=== PATIENT | female | born 1940 | race Caucasian/White ===

== ENCOUNTER 2016-11-23 09:59 | Day surgery (SDC) | payer BC, MEDICARE ==
--- NOTE | ~2016-11-23 | EGD ---
EGD REPORT [facility] [address] [address] NAME: CHRISTA JOHNSON : [birth year] STATUS : REG [facility]#: [id number] AGE: 76 ADM/REG DATE : 11/23/16 MR#: [id number] REPORT SERV DATE: 11/23/16 DICTATED BY: BRADY GOLDSTEIN DATE: 11/23/16 REPORT STATUS : Draft TRANSCRIBED BY: [facility] DATE: 11/23/16 Endoscopy Center Patient Name: Christa Johnson Date of : 1940 Attending MD: BRADY GOLDSTEIN, Procedure Date No Time: 11/23/2016 Procedure: Upper EUS Indications: Common bile duct dilation (acquired) seen on CT scan Referring MD: ANGEL LUIS MARR MD, JOSE ALBERTO [place] Medicines: Monitored Anesthesia Care Complications: No immediate complications. Estimated blood loss: None. Procedure: Pre-Anesthesia Assessment: - ASA Grade Assessment: III - A patient with severe systemic disease. After obtaining informed consent, the endoscope was passed under direct vision. Throughout the procedure, the patient's blood pressure, pulse, and oxygen saturations were monitored continuously. The Endoscope was introduced through the mouth, and advanced to the second part of duodenum. The GIF [id number] was introduced through the mouth, and advanced to the second part of duodenum. The upper EUS was accomplished without difficulty. The patient tolerated the procedure well. Findings: Endoscopic Finding : The examined esophagus was endoscopically normal. The cardia and gastric fundus were normal on retroflexion. Patchy mild inflammation characterized by erythema was found in the gastric body and in the gastric antrum. Biopsies were taken with a cold forceps for histology. Verification of patient identification for the specimen was done. Estimated blood loss was minimal. The exam of the stomach was otherwise normal. The duodenal bulb was normal. Decreased folds were found in the 2nd part of the duodenum and scalloped mucosa was found in the 2nd part of the duodenum. Biopsies were taken with a cold forceps for histology. Verification of patient identification for the specimen was done. Estimated blood loss was minimal. Endosonographic Finding : There was no sign of significant endosonographic abnormality in the entire pancreas. The pancreas was well visualized, no pathologic lymphadenopathy, no masses, no calcifications, the pancreatic duct was well visualized from ampulla to tail, the pancreatic duct was regular in contour. EGD REPORT [facility] [id number] [place]. [address] NAME: CHRISTA JOHNSON : [birth year] STATUS : REG [facility] PAT#: [id number] AGE: 76 ADM/REG DATE : 11/23/16 MR#: [id number] REPORT SERV DATE: 11/23/16 DICTATED BY: BRADY GOLDSTEIN DATE: 11/23/16 REPORT STATUS : Draft TRANSCRIBED BY: [employer] DATE: 11/23/16 There was dilation in the common bile duct which measured up to 9 mm. Endosonographic imaging of the visualized portion of the biliary system showed no stones and no mass. There was no sign of significant endosonographic abnormality in the examined duodenum. Endosonographic images of the stomach were unremarkable. There was no sign of significant endosonographic abnormality in the esophagus. Impression: - Normal esophagus. - Gastritis. Biopsied. - Normal duodenal bulb. - Duodenal mucosal changes seen, suspicious for celiac disease. Biopsied. - There was no sign of significant pathology in the entire pancreas. - There was dilation in the common bile duct which measured up to 9 mm. - There was no sign of significant pathology in the examined duodenum. - Endosonographic images of the stomach were unremarkable. - There was no sign of significant pathology in the esophagus. Recommendation: - Return to previous diet. - Continue present medications. - Await path results. - Return to referring physician. Procedure Code(s): --- Professional --- 98537, Esophagogastroduodenoscopy, flexible, transoral; with endoscopic ultrasound examination, including the esophagus, stomach, and either the duodenum or a surgically altered stomach where the jejunum is examined distal to the anastomosis Diagnosis Code(s): --- Professional --- K29.70, Gastritis, unspecified, without bleeding K31.9, Disease of stomach and duodenum, unspecified K83.8, Other specified diseases of biliary tract CPT copyright 2013 [employer]. All rights reserved. The codes documented in this report are preliminary and upon due diligence coordinator review may be revised to meet current compliance requirements. EGD REPORT [facility] [address] [address] NAME: CHRISTA JOHNSON : [birth year] STATUS : REG [facility] [place] PAT#: [id number] AGE: 76 ADM/REG DATE : 11/23/16 MR#: [id number] REPORT SERV DATE: 11/23/16 DICTATED BY: BRADY GOLDSTEIN DATE: 11/23/16 REPORT STATUS : Draft TRANSCRIBED BY: [employer] DATE: 11/23/16 Attending Participation: I personally performed the entire procedure. BRADY GOLDSTEIN, 11/23/2016 11:22 AM Number of Addenda: 0 Note Initiated On: 11/23/2016 10:36 AM Scope Withdrawal Time 0 hours 0 minutes 0 seconds [address] [id number]
--- NOTE | ~2016-11-23 | EGD ---
EGD REPORT [facility] [address] [address] NAME: CHRISTA JOHNSON : 36 STATUS : REG [facility]#: [id number] AGE: 76 ADM/REG DATE : 11/23/16 MR#: [id number] REPORT SERV DATE: 11/23/16 DICTATED BY: BRADY GOLDSTEIN DATE: 11/23/16 REPORT STATUS : Draft TRANSCRIBED BY: [employer] DATE: 11/23/16 Endoscopy Center Patient Name: Christa Johnson Date of : 1940 Attending MD: BRADY GOLDSTEIN, Procedure Date No Time: 11/23/2016 Procedure: Colonoscopy Indications: Hematochezia Referring MD: ANGEL LUIS [place] MD Medicines: Monitored Anesthesia Care Complications: No immediate complications. Estimated blood loss: None. Procedure: Pre-Anesthesia Assessment: - ASA Grade Assessment: III - A patient with severe systemic disease. After I obtained informed consent, the scope was passed under direct vision. Throughout the procedure, the patient's blood pressure, pulse, and oxygen saturations were monitored continuously. The PCF [id number] was introduced through the anus and advanced to the cecum, identified by appendiceal orifice and ileocecal valve. The colonoscopy was performed without difficulty. The patient tolerated the procedure well. The quality of the bowel preparation was good. Findings: The perianal and digital rectal examinations were normal. A few small-mouthed diverticula were found in the sigmoid colon. Internal hemorrhoids were found during retroflexion and were Grade II (internal hemorrhoids that prolapse but reduce spontaneously). The exam was otherwise without abnormality on direct and retroflexion views. Impression: - Diverticulosis in the sigmoid colon. - Internal hemorrhoids. - The examination was otherwise normal on direct and retroflexion views. Recommendation: - Patient has a contact number available for emergencies. The signs and symptoms of potential delayed complications were discussed with the patient. Return to normal activities tomorrow. Written discharge instructions were provided to the patient. - Return to previous diet. - Continue present medications. - Repeat colonoscopy is not recommended for screening EGD REPORT [address] [place]. [address] NAME: CHRISTA JOHNSON : [birth year] STATUS : REG [facility]#: [id number] AGE: 76 ADM/REG DATE : 11/23/16 MR#: [id number] REPORT SERV DATE: 11/23/16 DICTATED BY: BRADY GOLDSTEIN DATE: 11/23/16 REPORT STATUS : Draft TRANSCRIBED BY: [employer] SERVICES DATE: 11/23/16 purposes. - Return to referring physician. Procedure Code(s): --- Professional --- 45013, Colonoscopy, flexible, proximal to splenic flexure; diagnostic, with or without collection of specimen(s) by brushing or washing, with or without colon decompression (separate procedure) Diagnosis Code(s): --- Professional --- K64.1, Second degree hemorrhoids K57.30, Diverticulosis of large intestine without perforation or abscess without bleeding K92.1, Melena CPT copyright 2013 [employer]. All rights reserved. The codes documented in this report are preliminary and upon nozzle cement sprayer helper review may be revised to meet current compliance requirements. BRADY GOLDSTEIN, 11/23/2016 11:23 AM Number of Addenda: 0 Note Initiated On: 11/23/2016 10:25 AM Scope Withdrawal Time 0 hours 13 minutes 54 seconds [address] [place] [address]
[~2016-11-23 09:59] MED LIST: ADALAT CC60 MG PO; ASAB PO; CARD120 PO; JANTOVEN1 MG PO; Jantoven PO; KAPIDEX60 MG PO; LOP25 PO; MULTIPLE VIT PO; NORCO1 TA2 PO; NXL3 PO; SORINE120 MG PO; SYNTHROID137 MCG PO; SYNTHROID200 MCG PO; X5 PO
[2016-11-23 10:25] LABS: INTERNATIONAL NORMAL RATI 2.2 UNITS (-); PROTIME (NOT ORD) 24.4 SEC (12.0-14.5)
[2016-11-23 10:29] LABS: CALCIUM, SERUM 9.6 MG/DL (8.5-10.4); CHLORIDE, SERUM 108 MMOL/L (96-112); CO2 (CARBON DIOXIDE) 27 MMOL/L (24-34); CREATININE 0.68 MG/DL (0.55-1.02); DIRECT BILIRUBIN 0.2 MG/DL (0.0-0.4); GFR AFRICAN AMERICAN 97 ML/MIN (>=60); GFR NON AFRICAN AMERICAN 84 ML/MIN (>=60); GLUCOSE, SERUM 81 MG/DL (60-99); INDIRECT BILIRUBIN(NOT ORDER) 0.7 MG/DL (0.1-0.9); SGOT(AST) 33 U/L (5-40); SGPT(ALT) 34 U/L (5-65); TOTAL BILIRUBIN 0.9 MG/DL (0-1.2)
[2016-11-23 10:30] LABS: ALBUMIN 3.3 G/DL (3.5-5.0); ALKALINE PHOSPHATASE 96 U/L (45-117); BUN (BLOOD UREA NITROGEN) 9 MG/DL (6-23); POTASSIUM, SERUM 4.6 MMOL/L (3.5-5.3); SODIUM, SERUM 144 MMOL/L (135-148); TOTAL PROTEIN 6.2 G/DL (6.0-8.5)
== END 2016-11-23 23:59 | disposition home or self-care (01) ==
LOC: DMU 09:59
PROVIDERS: Anesthesiology; Internal Medicine Gastroenterology
PROC: 0DJ08ZZ Inspection of Upper Intestinal Tract, Via Natural or Artificial Opening Endoscopic (ICD-10-PCS; principal; 2016-11-23 12:00)
PROC: 0DJD8ZZ Inspection of Lower Intestinal Tract, Via Natural or Artificial Opening Endoscopic (ICD-10-PCS; 2016-11-23 12:00)
DX: K29.60 Other gastritis without bleeding (principal); K31.9 Disease of stomach and duodenum, unspecified; K83.8 Other specified diseases of biliary tract; K64.1 Second degree hemorrhoids; K57.30 Diverticulosis of large intestine without perforation or abscess without bleeding; K92.1 Melena; I10 Essential (primary) hypertension; I48.91 Unspecified atrial fibrillation; M19.90 Unspecified osteoarthritis, unspecified site; E03.9 Hypothyroidism, unspecified; Z88.0 Allergy status to penicillin; Z95.0 Presence of cardiac pacemaker; Z88.1 Allergy status to other antibiotic agents; Z79.899 Other long term (current) drug therapy; Z79.891 Long term (current) use of opiate analgesic; Z88.8 Allergy status to other drugs, medicaments and biological substances
CPT/HCPCS: 80048; 80076; 85610; 88305